=== PATIENT | female | born 1970 | race Native Hawaiian/Other Pacific Islander ===

== ENCOUNTER 2016-12-09 12:40 | Outpatient (CLI) | payer OTHER ==
[~2016-12-09 12:40] MED LIST: BUPR150T PO; DIVA250T2 PO; ESTR0.3T3 PO; GLUMETZA500 MG PO; PRANDIN2 MG OR; PROVERA5 MG OR; RISP1TAB PO; TIMOLOL MAL0.5 % OP; VALS160T PO; XANAX XR1 MG OR; ZOLOFT25 MG PO
== END 2016-12-09 20:11 | disposition home or self-care (01) ==
LOC: RAD 12:40
DX: M79.642 Pain in left hand (principal)

== ENCOUNTER 2017-05-20 08:45 | Outpatient (CLI) | payer OTHER ==
[2017-05-20 09:26] LABS: PLATELET COUNT 199 K/uL (152-353)
[2017-05-20 10:08] LABS: POTASSIUM 4.4 mmol/L (3.6-5.2); SODIUM 134 mmol/L (136-145)
== END 2017-05-20 19:35 | disposition home or self-care (01) ==
LOC: LABW 08:45
PROVIDERS: Physician Assistant
DX: E11.9 Type 2 diabetes mellitus without complications (principal); Z79.899 Other long term (current) drug therapy; Z51.81 Encounter for therapeutic drug level monitoring
CPT/HCPCS: 36415; 80053; 80061; 83036; 85027

== ENCOUNTER 2018-06-02 08:51 | Outpatient (CLI) | payer OTHER | END 2018-06-02 23:38 | disposition home or self-care (01) | LOC: RESP 08:51 | DX: R06.02 Shortness of breath (principal); F17.210 Nicotine dependence, cigarettes, uncomplicated; R91.8 Other nonspecific abnormal finding of lung field ==

== ENCOUNTER 2018-07-20 13:12 | Outpatient (CLI) | payer OTHER | END 2018-07-20 19:50 | disposition home or self-care (01) | LOC: RAD 13:12 | DX: M85.89 Other specified disorders of bone density and structure, multiple sites (principal) ==

== ENCOUNTER 2018-12-30 14:27 | Emergency (ER) | payer OTHER ==
[~2018-12-30] VITALS: Ht 121.9 cm; Wt 35.8 kg
[2018-12-30 14:27] VITALS: BP 155/76; TEMP 97.9
[2018-12-30 15:48] LABS: PLATELET COUNT 218 K/uL (152-353)
[2018-12-30 15:57] LABS: POTASSIUM 4.6 mmol/L (3.6-5.2)
[2018-12-30] MEDS ORDERED: MEDROXYPR AC5 MG PO (18:04)
[2018-12-30] MEDS ORDERED: MOBIC15 MG PO (18:05)
[2018-12-30] MEDS ORDERED: CVS NICOTI21 MG/24 H TD (18:07)
[2018-12-30] MEDS ORDERED: TEMA30CA18 PO (18:09)
[2018-12-30] MEDS ORDERED: VSL#3 PO (18:10)
[2018-12-30] MEDS ORDERED: CIPRO250 MG PO (18:11)
[2018-12-30] MEDS ORDERED: DIAZ5TAB20 PO (18:12)
[2018-12-30] MEDS ORDERED: DIVA250T PO (18:13)
[2018-12-30] MEDS ORDERED: GLIM4TAB PO (18:14)
[2018-12-30] MEDS ORDERED: LATANOPROST0.005 % OPTH (18:16)
[2018-12-30] MEDS ORDERED: RISP1TAB PO (18:17)
[2018-12-30] MEDS ORDERED: ZOLOFT25 MG PO (18:17)
[2018-12-30] MEDS ORDERED: NOVOLIN R100 UNIT/1 IM (18:19)
[2018-12-30] MEDS ORDERED: [UNRECOGNIZED DRUG - CODE] EX (18:21)
== END 2018-12-30 16:55 | disposition other institution (70) ==
LOC: ED 14:53
PROVIDERS: Emergency Medicine
DX: F28 Other psychotic disorder not due to a substance or known physiological condition (principal); Z04.6 Encounter for general psychiatric examination, requested by authority
CPT/HCPCS: 36415; 80053; 81000; 85027; 93005; 99285